=== PATIENT | male | born 2005 ===

== ENCOUNTER 2024-03-23 13:33 | Outpatient (OUT) | payer SELFPAY | END 2024-03-23 13:34 | disposition home or self-care (01) | LOC: PST 13:34 | PROVIDERS: Visit Provider Orthopaedic Surgery | DX: Z01.818 Encounter for other preprocedural examination (principal); S83.212A Bucket-handle tear of medial meniscus, current injury, left knee, initial encounter ==

== ENCOUNTER 2024-03-28 11:51 | Day surgery (SDC) | payer OTHER, SELFPAY ==
[2024-03-28] VITALS (14 sets, daily range): BP systolic 120–149; BP diastolic 56–79; PULSE 2–82; TEMP 36.4–36.7; O2SAT 97–100; BMI 22.5
[2024-03-28] MEDS: LACTATED RINGER'S SOLUTION 1,000 ML 50 ML IV (12:35)
[2024-03-28] MEDS: CEFAZOLIN SODIUM/DEXTROSE,ISO 2 GM/50 ML PIGGYBACK IV (14:01)
[2024-03-28] MEDS: BUPIVACAINE HCL 0.5% PF 50 MG/10 ML VIAL 20 ML INJ (15:21)
--- NOTE | 2024-03-28 15:44 | PM.ORPRC ---
Procedure Note Date of procedure: 03/28/24 Pre-op diagnosis: Displaced bucket-handle left knee medial meniscus tear Post-op diagnosis: same as pre-op Procedure: Operation: Left knee arthroscopic medial meniscal repair Detailed description of procedure: After informed consent was obtained the patient brought to the operating room where general anesthetic was administered. The left leg was prepped and draped in usual sterile fashion. Diagnostic arthroscopy was performed through standard anterior medial and anterolateral arthroscopy portals. Findings in the patellofemoral compartment included intact articular cartilage. In the medial compartment there was a posterior horn medial meniscus tear in the red-white zone. Articular cartilage in the medial compartment was intact. In the notch the ACL and PCL were intact. In the lateral compartment the lateral meniscus was intact as was the articular cartilage. Given the tear was off the capsule and there was bleeding So the decision was made to proceed with an all inside repair. Rasp was used to stimulate bleeding of the capsule. The meniscus was reduced. Using a total of 6 Mytec Truspan all inside meniscal sutures the meniscus was repaired using vertical mattress suture configuration both on the superior and inferior surface of the meniscus. 1 horizontal configuration was utilized. Tear was probed and found to be stable. Knee joint was drained of arthroscopy fluid. Portals were closed with observable suture. The joint was then with treated with 20 mL 0.5% Marcaine plain. Steri-Strips and a sterile dressing were placed. Patient was awakened and brought to the recovery room in stable condition. There were no intraoperative or immediate postoperative complications. Anesthesia: General-LMA Surgeon: Deni Toure Estimated blood loss (mL): 5 Pathology: none sent Condition: stable Disposition: PACU
[2024-03-28] MEDS: HYDROMORPHONE HCL 0.5 MG/0.5 ML SYRINGE IV ×3 (15:57→16:30)
--- NOTE | 2024-03-28 16:17 | PC.NURSE ---
Medicated as ordered for pain
--- NOTE | 2024-03-28 16:45 | PC.NURSE ---
Medicated for pain as ordered
[2024-03-28] MEDS: HYDROCODONE/ACET 5-325 MG TABLET 1 TAB PO (17:14)
--- NOTE | 2024-03-28 17:18 | PC.NURSE ---
Medicated with oral pain medication
--- NOTE | 2024-03-28 17:39 | PC.NURSE ---
F eeling nauseated; no emesis; instructed to sip liquids and verbalized understanding
== END 2024-03-28 17:50 | disposition home or self-care (01) ==
PROVIDERS: Visit Provider Orthopaedic Surgery
PROC: (CPT 1400; principal; 2024-03-28 13:00)
DX: S83.212A Bucket-handle tear of medial meniscus, current injury, left knee, initial encounter (principal); X58.XXXA Exposure to other specified factors, initial encounter
CPT/HCPCS: 29881; C1713; J0665; J0690; J1100; J1170; J1885; J2250; J2405; J2704; J3010